=== PATIENT | male | born 1990 | race Caucasian/White ===

== ENCOUNTER 2018-10-29 21:45 | Inpatient (IN) | payer MEDICAID, OTHER ==
[~2018-10-29] VITALS: Ht 185.4 cm; Wt 106.3 kg
[2018-10-29 22:12] LABS: MEAN CORPUSCULAR VOLUME 96 fL (80-100); MONOCYTES # (AUTO) 0.4 K/uL (0.1-1.0)
[2018-10-29 22:18] LABS: BASOPHILS % (AUTO) 0.6 % (0.0-2.0); EOSINOPHILS % (AUTO) 1.4 % (1.0-6.0); HEMATOCRIT 50.8 % (41-53); HEMOGLOBIN 17.3 g/dL (13.5-17.5); LYMPHOCYTES % (AUTO) 32.4 % (22.0-44.0); MEAN CORPUSCULAR HEMOGLOBIN 32.9 pg (26.0-34.0); MEAN CORPUSCULAR HGB CONC 34.1 G/dL (31.0-37.0); MONOCYTES % (AUTO) 6.2 % (2.0-9.0); NEUTROPHILS # (AUTO) 3.6 K/uL (1.8-7.7); NEUTROPHILS % (AUTO) 59.4 % (40.0-70.0); RED BLOOD CELL COUNT(AUTO) 5.27 MIL/uL (4.50-5.90); RED CELL DISTRIBUTION WIDTH 13.8 % (11.5-14.5)
[2018-10-29 22:22] LABS: ANION GAP 13 mmol/L (8-16); CALCIUM, TOTAL 9.2 mg/dL (8.8-10.5); CARBON DIOXIDE 26 mmol/L (22-29); CHLORIDE 100 mmol/L (98-107); CREATININE 0.98 mg/dL (0.60-1.30); GLOMERULAR FILTR. RATE CALC > 60 mL/min (>60); GLUCOSE,RANDOM 154 mg/dL (70-110); POTASSIUM 3.8 mmol/L (3.5-5.1); SODIUM SERUM 139 mmol/L (136-145); UREA NITROGEN, BLOOD 7 mg/dL (7-18)
[2018-10-29 22:24] LABS: AMPHET/METH SCREEN,URINE NEGATIVE (NEGATIVE); BARBITURATE SCREEN, URINE NEGATIVE (NEGATIVE); BENZODIAZEPINES SCREEN,URINE NEGATIVE (NEGATIVE); CANNABINOID SCREEN,URINE NEGATIVE (NEGATIVE); COCAINE SCREEN,URINE NEGATIVE (NEGATIVE); METHADONE SCREEN, URINE NEGATIVE (NEGATIVE); OPIATE SCREEN,URINE NEGATIVE (NEGATIVE)
[2018-10-29 22:25] LABS: PHENCYCLIDINE SCREEN,URINE NEGATIVE (NEGATIVE)
[2018-10-29 22:28] LABS: ALANINE AMINOTRANSFERASE 186 U/L (12-78); ALBUMIN 4.4 g/dL (3.4-5.0); ALKALINE PHOSPHATASE 104 U/L (46-116); ASPARTATE AMINOTRANSFERASE 170 U/L (15-37); BILIRUBIN,TOTAL 0.7 mg/dL (0.1-1.0); TOTAL PROTEIN, SERUM 8.6 g/dL (6.4-8.2)
[2018-10-29 22:43] LABS: PLATELET COUNT (AUTO) 96 K/uL (150-450)
[2018-10-30] MEDS ORDERED: HALOPERIDOL 5 MG TABLET PO PRN (01:45)
[2018-10-30] MEDS ORDERED: CYANOCOBALAMIN 1,000 MCG/ML VIAL IM ONE (01:45)
[2018-10-30] MEDS: LORazepam 2 MG TABLET PO PRN ×3 (02:19→19:23)
[2018-10-30] MEDS: ZOLPIDEM TARTRATE 10 MG TABLET PO PRN ×2 (02:20→21:58)
[2018-10-30 03:01] LABS: APPEARANCE,URINE CLEAR (CLEAR); BILIRUBIN,URINE NEGATIVE (NEGATIVE); GLUCOSE, URINE (UA) NEGATIVE (NEGATIVE); KETONES,URINE NEGATIVE (NEGATIVE); LEUKOCYTE ESTERASE ,URINE NEGATIVE (NEGATIVE); NITRATE,URINE NEGATIVE (NEGATIVE); OCCULT BLOOD,URINE NEGATIVE (NEGATIVE); PH,URINE 5.5 (5.0-8.0); PROTEIN,URINE POS 1+ (NEGATIVE); UROBILINOGEN,URINE 0.2 mg/dL (<=1.0)
[2018-10-30] MEDS: FOLIC ACID 1 MG TABLET PO SCH (08:52)
[2018-10-30] MEDS: THIAMINE HCL 100 MG TABLET PO SCH (08:53)
[2018-10-30] MEDS: MULTIVITAMINS WITH MINERALS, THERAPEUTIC TABLET PO SCH (10:24)
[2018-10-30] MEDS: SERTRALINE HCL 50 MG TABLET PO SCH (13:22)
[2018-10-30 18:22] VITALS: BP 139/89
[2018-10-30 18:30] VITALS: BP 139/89
[2018-10-30 19:30] VITALS: BP 167/82
[2018-10-30] MEDS ORDERED: ONDANSETRON HCL 4 MG TABLET PO PRN (20:00)
[2018-10-30] MEDS ORDERED: ALBUTEROL SULFATE HFA 90 MCG/PUFF 8 GM INHALER IH PRN (20:00)
[2018-10-30] MEDS ORDERED: MAGNESIUM HYDROXIDE SUSPENSION 30 ML UDCUP PO PRN (20:00)
[2018-10-30] MEDS ORDERED: NICOTINE 14 MG/24 HOUR PATCH TD PRN (20:00)
[2018-10-30] MEDS ORDERED: CloNIDine HCL 0.1 MG TABLET PO PRN (20:00)
[2018-10-30] MEDS ORDERED: LOPERAMIDE HCL 2 MG CAPSULE PO PRN (20:00)
[2018-10-30] MEDS ORDERED: ACETAMINOPHEN 325 MG TABLET PO PRN (20:00)
[2018-10-30] MEDS ORDERED: PETROLATUM,WHITE 28 GM JELLY TP PRN (20:00)
[2018-10-30] MEDS ORDERED: DOCUSATE SODIUM 100 MG CAPSULE PO PRN (20:00)
[2018-10-30] MEDS ORDERED: GuaiFENesin/D-METHORPHAN [SUGAR-FREE] 200-20MG/10 ML SYRUP UDCUP PO PRN (20:00)
[2018-10-30] MEDS ORDERED: MAG HYDROX/AL HYDROX/SIMETH ES 30 ML SUSPENSION UDCUP PO PRN (20:00)
[2018-10-30 20:30] VITALS: BP 146/86
[2018-10-30 21:30] VITALS: BP 160/88
[2018-10-30 22:30] VITALS: BP 161/91
[2018-10-31 02:30] VITALS: BP 152/90
[2018-10-31 06:30] VITALS: BP 163/108
[2018-10-31 06:48] LABS: CHOL/HDL RATIO 2.6 (4.2-7.3)
[2018-10-31 07:39] LABS: HEMOGLOBIN A1C 5.5 % (4.5-6.2)
[2018-10-31 08:12] VITALS: BP 135/100
[2018-10-31] MEDS: SERTRALINE HCL 50 MG TABLET PO SCH (09:10)
[2018-10-31] MEDS: THIAMINE HCL 100 MG TABLET PO SCH ×2 (09:10→16:25)
[2018-10-31] MEDS: MULTIVITAMINS WITH MINERALS, THERAPEUTIC TABLET PO SCH (09:11)
[2018-10-31] MEDS: LORazepam 2 MG TABLET PO SCH ×4 (09:11→20:30)
[2018-10-31] MEDS: FOLIC ACID 1 MG TABLET PO SCH (09:11)
[2018-10-31 12:35] LABS: FREE T4 (FREE THYROXINE) 1.12 ng/dL (0.76-1.46)
[2018-10-31 16:15] VITALS: BP 142/83
[2018-10-31] MEDS: LORazepam 2 MG TABLET PO PRN (18:22)
[2018-11-01] MEDS: LORazepam 2 MG TABLET PO PRN ×2 (00:09→02:44)
[2018-11-01 05:42] VITALS: BP 124/83
[2018-11-01 05:43] VITALS: BP 124/83
[2018-11-01] MEDS: SERTRALINE HCL 50 MG TABLET PO SCH (08:12)
[2018-11-01] MEDS: FOLIC ACID 1 MG TABLET PO SCH (08:12)
[2018-11-01] MEDS: THIAMINE HCL 100 MG TABLET PO SCH ×2 (08:12→18:47)
[2018-11-01] MEDS: LORazepam 2 MG TABLET PO SCH ×4 (08:12→22:15)
[2018-11-01] MEDS: MULTIVITAMINS WITH MINERALS, THERAPEUTIC TABLET PO SCH (08:12)
[2018-11-01 09:27] VITALS: BP 159/103
[2018-11-01 09:29] VITALS: BP 159/103
[2018-11-01] MEDS ORDERED: SERT50TA12 PO (12:15)
[2018-11-01] MEDS ORDERED: LORazepam 2 MG/ML VIAL IM ONE (13:30)
[2018-11-01] MEDS ORDERED: DiphenhydrAMINE HCL 50 MG/ML VIAL IM ONE (13:30)
[2018-11-01] MEDS ORDERED: HALOPERIDOL LACTATE 5 MG/ML VIAL IM ONE (13:30)
[2018-11-01 21:12] VITALS: BP 147/98
[2018-11-01 21:13] VITALS: BP 147/98
[2018-11-02] MEDS ORDERED: LORazepam 1 MG TABLET PO PRN (07:00)
[2018-11-02] MEDS: MULTIVITAMINS WITH MINERALS, THERAPEUTIC TABLET PO SCH (08:30)
[2018-11-02] MEDS: FOLIC ACID 1 MG TABLET PO SCH (08:30)
[2018-11-02] MEDS: THIAMINE HCL 100 MG TABLET PO SCH ×2 (08:30→17:55)
[2018-11-02] MEDS: SERTRALINE HCL 50 MG TABLET PO SCH (08:31)
[2018-11-02] MEDS: LORazepam 1 MG TABLET PO SCH ×4 (08:34→21:42)
[2018-11-02] MEDS ORDERED: INDOMETHACIN 25 MG CAPSULE PO PRN (12:00)
[2018-11-02] MEDS ORDERED: TraZODone HCL 50 MG TABLET PO PRN (12:30)
[2018-11-02 13:28] VITALS: BP 138/99
[2018-11-02 16:30] VITALS: BP 137/84
[2018-11-02 16:43] VITALS: BP 131/84
[2018-11-03 06:24] VITALS: BP 147/94
[2018-11-03] MEDS: IBUPROFEN 400 MG TABLET PO PRN ×2 (06:25→12:33)
[2018-11-03] MEDS ORDERED: LORazepam 1 MG TABLET PO PRN (07:00)
[2018-11-03 08:40] VITALS: BP 137/86
[2018-11-03] MEDS: COLCHICINE 0.6 MG TABLET PO SCH (10:09)
[2018-11-03] MEDS: SERTRALINE HCL 50 MG TABLET PO SCH (10:12)
[2018-11-03] MEDS: MULTIVITAMINS WITH MINERALS, THERAPEUTIC TABLET PO SCH (10:12)
[2018-11-03] MEDS: THIAMINE HCL 100 MG TABLET PO SCH ×2 (10:12→17:30)
[2018-11-03] MEDS: FOLIC ACID 1 MG TABLET PO SCH (10:13)
[2018-11-03 16:23] VITALS: BP 139/85
[2018-11-03 16:52] VITALS: BP 139/85
[2018-11-04 06:07] VITALS: BP 128/80
[2018-11-04 06:11] VITALS: BP 128/80
[2018-11-04 07:34] VITALS: BP 137/71
[2018-11-04] MEDS: IBUPROFEN 400 MG TABLET PO PRN (07:34)
[2018-11-04 08:08] VITALS: BP 137/71
[2018-11-04] MEDS: SERTRALINE HCL 50 MG TABLET PO SCH (08:27)
[2018-11-04] MEDS: THIAMINE HCL 100 MG TABLET PO SCH (08:27)
[2018-11-04] MEDS: MULTIVITAMINS WITH MINERALS, THERAPEUTIC TABLET PO SCH (08:27)
[2018-11-04] MEDS: FOLIC ACID 1 MG TABLET PO SCH (08:27)
[2018-11-04] MEDS: COLCHICINE 0.6 MG TABLET PO SCH (08:28)
[2018-11-04 08:30] VITALS: BP 127/76
[2018-11-04] MEDS ORDERED: FOLI1 PO (13:07)
[2018-11-04] MEDS ORDERED: MULT-1239 PO (13:07)
[2018-11-04] MEDS ORDERED: THIA100T67 PO (13:07)
[2018-11-04] MEDS ORDERED: COLC0.6T67 PO (13:07)
== END 2018-11-04 15:10 | disposition home or self-care (01) | DRG 751 ==
LOC: EMS 21:49 → 3EI 10-30 16:31 → 3EC 11-01 13:00
DX: F33.2 Major depressive disorder, recurrent severe without psychotic features (principal); R45.851 Suicidal ideations; F10.20 Alcohol dependence, uncomplicated; Y90.8 Blood alcohol level of 240 mg/100 ml or more; E78.5 Hyperlipidemia, unspecified; F41.9 Anxiety disorder, unspecified; Z79.899 Other long term (current) drug therapy; F17.210 Nicotine dependence, cigarettes, uncomplicated; Z56.0 Unemployment, unspecified; R79.89 Other specified abnormal findings of blood chemistry; R74.0 Nonspecific elevation of levels of transaminase and lactic acid dehydrogenase [LDH]; F19.10 Other psychoactive substance abuse, uncomplicated
CPT/HCPCS: 80074; 83036; 84439; 84443; 96372; G0480; J1200; J1630; J2060; J3420